=== PATIENT | female | born 1985 | race American Indian/Alaskan Native ===

== ENCOUNTER 2019-12-27 11:36 | Emergency (ER) | payer SELFPAY ==
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
--- NOTE | 2019-12-27 13:19 | CR ---
Right elbow: 3 views of the right elbow were obtained. Comparison: No prior right elbow study. Mild soft tissue swelling is noted. Joint spaces are preserved. No joint effusion is seen. No acute fracture or other bony abnormality is appreciated. Impression: 1. Soft tissue swelling. 2. No additional abnormality is appreciated on right elbow study. Diagnostic code #2 Study was dictated in MDT
--- NOTE | 2019-12-27 13:20 | CR ---
Right shoulder: 2 views of the right shoulder were obtained. No discrete fracture or other bony abnormality is appreciated. Impression: 1. No abnormality is appreciated on 2 view right shoulder study. Note: If there are strong suspicions for dislocation, axillary view is then recommended. Diagnostic code #1 Study was dictated in MDT
--- NOTE | 2019-12-27 13:21 | CR ---
Right humerus: 2 views of the right humerus were obtained. Comparison: No prior humerus study. No fracture or other bony abnormality is appreciated. Impression: 1. No abnormality is appreciated on 2 view right humerus study. Diagnostic code #1 Study was dictated in MDT
--- NOTE | 2019-12-27 13:21 | CR ---
Right wrist: 2 views of the right wrist were obtained. Comparison: No prior right wrist study. Joint spaces are preserved. No acute fracture or other bony abnormality is appreciated. Impression: 1. No abnormality is appreciated on 2 view right wrist exam. Diagnostic code #1 Study was dictated in MDT
== END 2019-12-27 13:41 | disposition home or self-care (01) ==
LOC: MW.ED 11:36
DX: S40.021A Contusion of right upper arm, initial encounter (principal); Y04.0XXA Assault by unarmed brawl or fight, initial encounter
CPT/HCPCS: 73030-26-RT; 73030-RT; 73060-26-RT; 73060-RT; 73080-26-RT; 73080-RT; 73100-26-RT; 73100-RT; 99282; 99283-25

== ENCOUNTER 2025-02-15 17:50 | Emergency (ER) | payer SELFPAY | END 2025-02-15 17:55 | disposition left against medical advice (07) | LOC: MW.ED 17:50 ==